=== PATIENT | male | born 1980 | race Caucasian/White ===

== ENCOUNTER 2016-09-07 23:13 | Emergency (ER) | payer OTHER ==
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
[~2016-09-07 23:13] MED LIST: BENADRYL25 MG PO; FLEXERIL PO; IBUPROFEN PO; KEFLEX PO; LORTAB 7.5-5001 TAB PO; ORAPRED ODT10 MG PO; RANITIDINE HCL300 M1 PO; VICODIN 5/1 TAB 5/50 PO; VICODIN 5/500 T1 TAB PO
== END 2016-09-07 23:25 | disposition home or self-care (01) ==
LOC: CFTX 23:13
DX: S93.602A Unspecified sprain of left foot, initial encounter (principal); I10 Essential (primary) hypertension; K21.9 Gastro-esophageal reflux disease without esophagitis; G47.30 Sleep apnea, unspecified; Z88.2 Allergy status to sulfonamides; V43.52XA Car driver injured in collision with other type car in traffic accident, initial encounter; Y92.410 Unspecified street and highway as the place of occurrence of the external cause
CPT/HCPCS: 29540; 73630; 99283

== ENCOUNTER 2017-01-18 22:16 | Emergency (ER) | payer OTHER ==
[~2017-01-18] VITALS: Ht 170.2 cm; Wt 138.3 kg
== END 2017-01-19 02:00 | disposition home or self-care (01) ==
LOC: CED 22:16
DX: R51 Headache (principal); I10 Essential (primary) hypertension; Z88.1 Allergy status to other antibiotic agents; Z88.2 Allergy status to sulfonamides; Z88.8 Allergy status to other drugs, medicaments and biological substances
CPT/HCPCS: 99283